=== PATIENT | female | born 1945 | race Caucasian/White ===

== ENCOUNTER 2016-12-08 03:44 | Emergency (ER) | payer OTHER ==
[~2016-12-08] VITALS: Ht 157.5 cm; Wt 98.0 kg
[2016-12-08 03:51] VITALS: TEMP 36.6; Ht 157.5 cm; Wt 98.0 kg
--- NOTE | 2016-12-08 04:06 | EMERGENCY ROOM VISIT NOTE ---
History Report prepared by Yanci: Von Dominguez Under the Supervision of: Dr. Earlene Kang D.O. First contact with patient: 03:53 Chief Complaint: DIZZY Stated Complaint: VOMITING,DIZZY History of Present Illness The patient is a 71 year old female who presents to the Emergency Room with complaints of improved dizziness starting yesterday. She also complains of some right ear pain. She denies any pain with movement of the ear. She started having a cough a few days ago. She reports nausea but denies vomiting. She was able to sleep as normal tonight. She denies chest pain, shortness of breath, or any other complaints. The patient does not have any medical problems. She has a history of frequent bronchitis and pneumonia. She also has a history of high blood pressure occurring with bronchitis but denies being diagnosed with hypertension. She quit smoking cigarettes about 9 years ago. Source of History: patient Onset: yesterday Position: other (global) Quality: other (dizziness) Timing: other (improved) Associated Symptoms: + cough, + nausea, No SOB, No chest pain, No vomiting Review of Systems See HPI for pertinent positives & negatives. A total of 10 systems reviewed and were otherwise negative. Past Medical & Surgical Medical Problems: (1) Bronchitis (2) Pneumonia Family History Heart disease Social History Smoking Status: Former Smoker Marital Status: Occupation Status: employed Current/Historical Medications No Active Prescriptions or Reported Meds Allergies Coded Allergies: Grass (Verified Allergy, Intermediate, SNEEZING, ITCHY EYES, RUNNY NOSE, ) POLLEN (Verified Allergy, Intermediate, SNEEZING, ITCHY EYES, RUNNY NOSE, 12/08/16) Aspirin (Verified Allergy, Unknown, LETHARGY, 12/08/16) Penicillins (Verified Allergy, Unknown, GI SYMPTOMS, 12/08/16) Sulfa Antibiotics (Verified Allergy, Unknown, RASH, 12/08/16) Physical Exam Vital Signs Date Time Temp Pulse Resp B/P Pulse Ox O2 Delivery O2 Flow Rate FiO2 12/08/16 05:17 82 18 159/86 96 12/08/16 04:40 85 18 164/85 96 Room Air 12/08/16 04:06 97 12/08/16 03:51 36.6 95 20 211/102 94 Room Air Physical Exam HEENT: Head - normocephalic and atraumatic Pupils are equal, round, and reactive to light. Ear exam- Left TM is normal. Right TM appears normal, inflammation and edema of the canal. Extraocular eye muscles are intact, and sclera are anicteric. Nose - moist nasal mucosa without discharge. Mouth - moist buccal mucosa. Oropharynx is nonerythematous and there is no tonsillar exudate or edema noted. Neck: Supple; no JVD, nuchal rigidity, cervical lymphadenopathy. Heart: Regular rate and rhythm. There is a normal S1 and S2 with no murmurs, clicks, or gallops appreciated. Lungs: Clear to auscultation bilaterally with no wheezes, rales, or rhonchi. Abdomen: Soft, completely nontender, nondistended, with good bowel sounds. There are no palpable pulsatile masses or hepatosplenomegaly. There is no guarding, rigidity, or rebound noted. Extremities: No evidence of cyanosis, or clubbing. There are easily palpable peripheral pulses. 1+ edema of bilateral lower extremities. Skin: warm and dry with good turgor and no rashes. Medical Decision & Procedures ER Provider Diagnostic Interpretation: X-ray results as stated below per interpretation by me: CHEST X-RAY No acute pulmonary pathology, no cardiomegaly. Laboratory Results 12/08/16 04:00 Red Blood Count 4.48, Mean Corpuscular Volume 93.1, Mean Corpuscular Hemoglobin 30.6, Mean Corpuscular Hemoglobin Concent 32.9, Mean Platelet Volume 9.5, Neutrophils (%) (Auto) 61.0, Lymphocytes (%) (Auto) 29.9, Monocytes (%) (Auto) 6.6, Eosinophils (%) (Auto) 1.8, Basophils (%) (Auto) 0.4, Neutrophils # (Auto) 4.81, Lymphocytes # (Auto) 2.35, Monocytes # (Auto) 0.52, Eosinophils # (Auto) 0.14, Basophils # (Auto) 0.03 12/08/16 04:00 Test 12/08/16 04:00 12/08/16 04:35 White Blood Count 7.87 K/uL (4.8-10.8) Red Blood Count 4.48 M/uL (4.2-5.4) Hemoglobin 13.7 g/dL (12.0-16.0) Hematocrit 41.7 % (37-47) Mean Corpuscular Volume 93.1 fL (80-100) Mean Corpuscular Hemoglobin 30.6 pg (25-34) Mean Corpuscular Hemoglobin Concent 32.9 g/dl (32-36) Platelet Count 210 K/uL (130-400) Mean Platelet Volume 9.5 fL (7.4-10.4) Neutrophils (%) (Auto) 61.0 % Lymphocytes (%) (Auto) 29.9 % Monocytes (%) (Auto) 6.6 % Eosinophils (%) (Auto) 1.8 % Basophils (%) (Auto) 0.4 % Neutrophils # (Auto) 4.81 K/uL (1.4-6.5) Lymphocytes # (Auto) 2.35 K/uL (1.2-3.4) Monocytes # (Auto) 0.52 K/uL (0.11-0.59) Eosinophils # (Auto) 0.14 K/uL (0-0.5) Basophils # (Auto) 0.03 K/uL (0-0.2) RDW Standard Deviation 44.4 fL (36.4-46.3) RDW Coefficient of Variation 13.1 % (11.5-14.5) Immature Granulocyte % (Auto) 0.3 % Immature Granulocyte # (Auto) 0.02 K/uL (0.00-0.02) Anion Gap 6.0 mmol/L (3-11) Est Creatinine Clear Calc Drug Dose 62.2 ml/min Estimated GFR () 73.1 Estimated GFR (Non- 63.1 BUN/Creatinine Ratio 19.4 (10-20) Calcium Level 9.0 mg/dl (8.5-10.1) Total Bilirubin 0.4 mg/dl (0.2-1) Direct Bilirubin < 0.1 mg/dl (0-0.2) Aspartate Amino Transf (AST/SGOT) 15 U/L (15-37) Alanine Aminotransferase (ALT/SGPT) 24 U/L (12-78) Alkaline Phosphatase 72 U/L (45-117) Troponin I < 0.015 ng/ml (0-0.045) Total Protein 7.7 gm/dl (6.4-8.2) Albumin 3.6 gm/dl (3.4-5.0) Urine Color YELLOW Urine Appearance CLEAR (CLEAR) Urine pH 6.0 (4.5-7.5) Urine Specific [place] 1.018 (1.000-1.030) Urine Protein NEG (NEG) Urine Glucose (UA) NEG (NEG) Urine Ketones NEG (NEG) Urine Occult Blood TRACE (NEG) Urine Nitrite NEG (NEG) Urine Bilirubin NEG (NEG) Urine Urobilinogen NEG (NEG) Urine Leukocyte Esterase TRACE (NEG) Urine WBC (Auto) 1-5 /hpf (0-5) Urine RBC (Auto) 0-4 /hpf (0-4) Urine Hyaline Casts (Auto) 1-5 /lpf (0-5) Urine Epithelial Cells (Auto) 10-20 /lpf (0-5) Urine Bacteria (Auto) NEG (NEG) Laboratory results per my review. Medications Administered Medications (Trade) Dose Ordered Sig/Tamara Route Start Time Stop Time Status Last Admin Dose Admin Neomycin/ Polymyxin/ Hydrocortisone (Cortisporin Otic Susp) 4 drops NOW ONCE OT 12/08/16 05:15 12/08/16 05:16 DC 12/08/16 05:16 4 DROPS Procedure Neomycin/Polymyxin/Hydrocortisone 4 drops OT ECG Indication: other (Dizziness) Rate (beats per minute): 96 Rhythm: normal sinus Findings: no acute ischemic change, no ectopy Comparison ECG Date: no prior available ED Course 0353: Past medical records reviewed. The patient was evaluated in room B03B. A complete history and physical exam was performed. Labs were drawn as above. The patient had chest x-ray as described above. 0503: Upon reevaluation, the patient is resting comfortably. Her blood pressure has come down on its own. I discussed findings and results with her. She verbalized agreement of the treatment plan. She was discharged home. 0515: Neomycin/Polymyxin/Hydrocortisone 4 drops OT Medical Decision This is a 71 year old patient who presents to the Emergency Room with complaints of dizziness. Differential diagnosis includes but is not limited to otitis media, otitis externa, hypertensive emergency, pneumonia, bronchitis. Her labs showed normal white count, stable H&H. Urinalysis had trace blood and trace leucocyte esterase, and 10-20 epithelial cells. Her glucose was 114. She had normal renal function, normal LFTs, and normal troponin. On physical exam, the patient has evidence of an otitis externa. She does have history of this. Chest x-ray shows no evidence for pneumonia. The patient admits that her blood pressure does go up when she has [place]. I believe she is suffering from an acute viral bronchitis. Blood pressure came down nicely on its own. Impression Primary Impression: Otitis externa of right ear Additional Impression: Bronchitis Scribe Attestation The scribe's documentation has been prepared under my direction and personally reviewed by me in its entirety. I confirm that the note above accurately reflects all work, treatment, procedures, and medical decision making performed by me. Departure Information Dispostion Home / Self-Care Prescriptions No Active Prescriptions or Reported Meds Referrals No Doctor, Assigned (PCP) Forms HOME CARE DOCUMENTATION FORM, IMPORTANT VISIT INFORMATION Patient Instructions ED Bronchitis Viral, ED Otitis Externa, [facility] Additional Instructions Rest 4 drops to the right ear 4 times a day. 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
[2016-12-08 04:37] LABS: BASO % 0.4 %; BASO ABS # 0.03 K/uL (0-0.2); COMPLETE YES; EOS % 1.8 %; HEMATOCRIT 41.7 % (37-47); IG% 0.3 %; LYMPH % 29.9 %; LYMPH ABS # 2.35 K/uL (1.2-3.4); MEAN CELL VOLUME 93.1 fL (80-100); MEAN CORPUSCULAR HEMOGLOBIN 30.6 pg (25-34); MEAN CORPUSCULAR HGB CONC 32.9 g/dl (32-36); MEAN PLATELET VOLUME 9.5 fL (7.4-10.4); MONO % 6.6 %; PLATELET COUNT 210 K/uL (130-400); RED BLOOD COUNT 4.48 M/uL (4.2-5.4); WHITE BLOOD COUNT 7.87 K/uL (4.8-10.8)
[2016-12-08 04:48] LABS: URINE APPEARANCE CLEAR (CLEAR); URINE BILIRUBIN NEG (NEG); URINE COLOR YELLOW; URINE NITRITE NEG (NEG); URINE SPECIFIC GRAVITY 1.018 (1.000-1.030); UROBILINOGEN NEG (NEG)
[2016-12-08 04:58] LABS: MANUAL MICROSCOPIC REQUIRED? NO; REVIEW REQ? NO
[2016-12-08 05:00] LABS: ALT/SGPT 24 U/L (12-78); AST/SGOT 15 U/L (15-37); BLOOD UREA NITROGEN 18 mg/dl (7-18); BUN/CREATININE RATIO 19.4 (10-20); CARBON DIOXIDE 29 mmol/L (21-32); CHLORIDE 107 mmol/L (98-107); CREATININE 0.92 mg/dl (0.60-1.20); GLUCOSE 114 mg/dl (70-99); SODIUM 142 mmol/L (136-145)
[2016-12-08 05:05] LABS: ALKALINE PHOSPHATASE 72 U/L (45-117)
[2016-12-08] MEDS ORDERED: NEOMYCIN/POLYMYX/HYDROCORT OT SUSP 10 ML BTL OT ONE (05:15)
[2016-12-08 05:17] VITALS: BP 159/86; PULSE 82; O2SAT 96
--- NOTE | 2016-12-08 08:53 | DIAGNOSTIC IMAGING REPORT ---
TWO VIEW CHEST CLINICAL HISTORY: Cough and dyspnea. FINDINGS: PA and lateral chest radiographs are compared to study dated 12/23/2012. The heart is top normal for projection. There is atherosclerotic calcification of the thoracic aorta. Chronic interstitial thickening is unchanged from previous. The lungs and pleural spaces are clear. There is no pneumothorax. The skeletal structures are osteopenic. Degenerative change is noted throughout the thoracic spine. IMPRESSION: No active disease in the chest. Electronically signed by: Patricio White M.D. 12/08/2016 8:51 AM Dictated Date/Time: 12/08/2016 8:51 AM
== END 2016-12-08 05:17 | disposition home or self-care (01) ==
LOC: C.EDB 03:45
DX: H60.21 Malignant otitis externa, right ear (principal); J40 Bronchitis, not specified as acute or chronic; Z87.01 Personal history of pneumonia (recurrent); Z87.891 Personal history of nicotine dependence